=== PATIENT | male | born 1970 | race Caucasian/White ===

== ENCOUNTER 2019-07-22 12:01 | Emergency (ER) | payer OTHER ==
--- NOTE | 2019-07-22 12:25 | PDOC ---
History of Present Illness - General Chief Complaint: Injury Stated Complaint: LEFT SHOULDER PAIN Time Seen by Provider: 07/22/19 12:06 - History of Present Illness Initial Comments: Mr. Dalton is a 49 y/o male with PMH significant for HTN and HLD, presenting s/p mechanical fall yesterday. Reports that he slipped on the stairs and fell down four steps. Reports left shoulder pain. Denies head trauma, LOC. Denies nausea/vomiting after the fall. Denies dizziness /palpitations prior to the fall. Denies neck pain. Past History - Past Medical History Allergies/Adverse Reactions: Allergies Allergy/AdvReac Type Severity Reaction Status Date / Time No Known Allergies Allergy Verified 07/22/19 12:14 Home Medications: Ambulatory Orders NK [No Known Home Medication] 07/22/19 Kidney Stones: Yes - Psycho Social/Smoking Cessation Hx Smoking History: Former smoker Have you smoked in the past 12 months: No Review of Systems - Review of Systems Comments:: GENERAL/CONSTITUTIONAL: No fever or chills. No weakness._ HEAD, EYES, EARS, NOSE AND THROAT: No change in vision. No change in hearing. No sore throat._ CARDIOVASCULAR: No chest pain or shortness of breath_ RESPIRATORY: Denies cough, hemoptysis_ GASTROINTESTINAL: No nausea, vomiting, diarrhea or constipation._ GENITOURINARY: No dysuria, frequency, or change in urination._ MUSCULOSKELETAL: Reports left shoulder pain. SKIN: No rash_ NEUROLOGIC: No headache, vertigo, loss of consciousness, or change in strength/ sensation._ *Physical Exam - Physical Exam Comments: GENERAL: Awake, alert, and oriented to person/place/time, in no acute distress_ HEAD: No signs of trauma, normocephalic, atraumatic _ EYES: PERRLA, EOMI, sclera anicteric, conjunctiva clear_ ENT: Hearing grossly normal, nares patent, oropharynx clear without exudates. No uvular deviation. Moist mucosa_ NECK: Normal ROM, supple, no lymphadenopathy, JVD, or masses_ LUNGS: No distress, speaks in full sentences, clear to auscultation bilaterally _ HEART: Regular rate and rhythm, normal S1 and S2, no murmurs appreciated, peripheral pulses normal and equal bilaterally._ ABDOMEN: Soft, nontender, normoactive bowel sounds. No guarding, no rebound. No masses_ EXTREMITIES RUE/LLE/RLE: Normal inspection, Normal range of motion, no edema. No clubbing or cyanosis_ LUE: Inspection: No erythema or ecchymosis. TTP over left acromion. No obvious abnormalities, no open wounds. Compartments soft and compressible, pain within proportion, no pain to passive stretch Sensation: sensation present to light touch Motor: intact AIN/PIN/Ulnar in hand; 5/5 Wrist flex/ext; 5/5 Elbow flex/ext; 5/ 5 Shoulder ABd,Flex Vascular: 2+ radial pulse palpated, BCR all fingers <2 sec. NEUROLOGICAL: Cranial nerves II through XII grossly intact. Normal speech, normal gait, no focal sensorimotor deficits _ SKIN: Warm, Dry, normal turgor, no rashes or lesions noted_ Medical Decision Making - Medical Decision Making 49M hx of HTN HLD, here after mechanical fall yesterday afternoon. Fell on left shoulder. Neurovascularly intact. -XR left shoulder 07/22/19 13:07 XR left shoulder does not show fracture or subluxation. Plan to d/c home, Motrin for pain control, f/u PCP and ortho as needed. Discharge - Discharge Information Problems reviewed: Yes Clinical Impression/Diagnosis: Shoulder pain, left Qualifiers: Chronicity: acute Qualified Code(s): M25.512 - Pain in left shoulder Condition: Stable Disposition: HOME - Follow up/Referral Referrals: Joaquin Hernandez MD [Staff Physician] - Jf Gore MD [Staff Physician] - - Patient Discharge Instructions Patient Printed Discharge Instructions: DI for Shoulder Pain Additional Instructions: Please rest and ice your left shoulder as needed. Please take Motrin as needed for your pain (follow instructions on the package). Please make a follow up appointment with your primary care physician and an orthopedist if the pain does not improve (referrals included here). - Post Discharge Activity
[2019-07-22] MEDS ORDERED: IBUPROFEN 600 MG TABLET (FP) PO ONE ×2 (12:30→12:34)
[2019-07-22 12:32] VITALS: BP 164/104; PULSE 95; TEMP 98.1; BMI 35.2
--- NOTE | 2019-07-22 12:45 | PDOC ---
Attending Attestation - Resident Resident Name: Jerald Kraus - ED Attending Attestation I have performed the following: I have examined & evaluated the patient, The case was reviewed & discussed with the resident, I agree w/resident's findings & plan, Exceptions are as noted - HPI HPI: 07/22/19 12:43 49-year-old male here today status post fall yesterday. Patient states he fell on some steps landing on his left side complaining of left shoulder pain. States he did not hit his head no LOC no neck or back pain did not take anything for his pain prior to arrival pain in the left shoulder is worse with abduction at 90 degrees denies any elbow or wrist pain no other injury sustained during his fall has been ambulating since the injury pain is moderate no associated ecchymosis swelling or deformity - Physicial Exam PE: 07/22/19 12:43 Awake alert no acute distress head is atraumatic there is no palpable cervical spine tenderness. Lungs are clear bilaterally heart is regular without murmurs rubs or gallops no palpable chest wall tenderness crepitus step-offs. No collarbone tenderness. The extremity exam reveals tenderness palpation laterally of the left shoulder there is pain at abduction to 90degrees no deformity patient is able to touch the opposite shoulder without difficulty elbow and wrist are nontender with full range of motion abdomen is soft nontender extremities otherwise atraumatic bilateral pelvis and hips are stable - Medical Decision Making 07/22/19 12:44 49-year-old male status post trip and fall 24 hours ago complaining of left shoulder pain. Plan x-ray to rule out underlying fracture likely rotator cuff injury or contusion plan Motrin for pain ice follow-up with orthopedics effect x -rays are negative DC home 07/22/19 12:45 07/22/19 14:33 xray negative dc home.
== END 2019-07-22 13:10 | disposition home or self-care (01) ==
LOC: FER 12:01
DX: M25.512 Pain in left shoulder (principal); I10 Essential (primary) hypertension; E78.5 Hyperlipidemia, unspecified; Z87.891 Personal history of nicotine dependence; W10.9XXA Fall (on) (from) unspecified stairs and steps, initial encounter; Y93.9 Activity, unspecified; Y92.9 Unspecified place or not applicable
CPT/HCPCS: 73030-TC-LT-FY; 99282-25

== ENCOUNTER 2021-10-09 04:33 | Day surgery (SDC) | payer OTHER ==
[2021-10-08 14:00] VITALS: BMI 35.2
[2021-10-09 10:49] VITALS: TEMP 97.5
[2021-10-09 11:39] VITALS: BP 129/74; PULSE 64
== END 2021-10-09 11:58 | disposition home or self-care (01) ==
LOC: JASU-ENDO 04:33
PROVIDERS: ATTEND Internal Medicine Gastroenterology
PROC: 0DBL8ZX Excision of Transverse Colon, Via Natural or Artificial Opening Endoscopic, Diagnostic (ICD-10-PCS; 2021-10-09)
PROC: 0DB98ZX Excision of Duodenum, Via Natural or Artificial Opening Endoscopic, Diagnostic (ICD-10-PCS; 2021-10-09)
PROC: 0DB68ZX Excision of Stomach, Via Natural or Artificial Opening Endoscopic, Diagnostic (ICD-10-PCS; 2021-10-09)
PROC: 0DBK8ZX Excision of Ascending Colon, Via Natural or Artificial Opening Endoscopic, Diagnostic (ICD-10-PCS; principal; 2021-10-09 09:30)
DX: Z12.11 Encounter for screening for malignant neoplasm of colon (principal); D12.2 Benign neoplasm of ascending colon; D12.3 Benign neoplasm of transverse colon; K64.8 Other hemorrhoids; K29.00 Acute gastritis without bleeding; K29.80 Duodenitis without bleeding
CPT/HCPCS: 88305-TC; 88342-TC

== ENCOUNTER 2023-03-01 17:23 | Emergency (ER) | payer OTHER ==
[2023-03-01 17:51] VITALS: BP 127/87; PULSE 100; RESP 20; TEMP 99.1; BMI 34.8
[2023-03-01] MEDS ORDERED: ACETAMINOPHEN 1000 MG/100 ML BAG IVPB ONE (17:51)
[2023-03-01] MEDS ORDERED: ONDANSETRON 4 MG/2 ML VIAL IVPUSH ONE (17:51)
[2023-03-01] MEDS ORDERED: SODIUM CHLORIDE 0.9% 1000 ML INFUS.BAG IV ONE (17:51)
[2023-03-01] MEDS ORDERED: ACETAMINOPHEN INJECTION 100 ML IVPB ONE (17:54)
[2023-03-01] MEDS ORDERED: ONDANSETRON 4 MG/2 ML VIAL ONE (17:54)
[2023-03-01 18:20] LABS: HEMATOCRIT 45.9 % (35.4-49); HEMOGLOBIN 15.9 G/dL (11.7-16.9); MCH 29.9 pg (25.7-33.7); MCHC 34.6 g/dl (32.0-35.9); MEAN CELL VOLUME 86.6 fl (80-96); MEAN PLT VOLUME 8.4 fl (7.5-11.1); PLATELET COUNT 238.8 10^3/uL (134-434); RDW 13.8 % (11.9-15.9); WHITE BLOOD COUNT 10.8 10^3/uL (4.0-10.8)
[2023-03-01 18:51] LABS: ALBUMIN 4.3 g/dl (3.4-5.0); BILIRUBIN,TOTAL 0.8 mg/dl (0.2-1); CALCIUM 9.3 mg/dl (8.5-10); CREATININE 1.2 mg/dl (0.55-1.3); POTASSIUM 3.9 mmol/L (3.5-5.1); TOT PROT 7.4 g/dl (6.4-8.2)
[2023-03-01] MEDS ORDERED: FAMOTIDINE 20 MG/50 ML IVPB 20 MG/50 ML MG IVPB ONE ×2 (19:25→19:42)
== END 2023-03-02 00:42 | disposition home or self-care (01) ==
LOC: FER 17:23
PROC: 3E033GC Introduction of Other Therapeutic Substance into Peripheral Vein, Percutaneous Approach (ICD-10-PCS; principal; 2023-03-01)
PROC: 3E033GC Introduction of Other Therapeutic Substance into Peripheral Vein, Percutaneous Approach (ICD-10-PCS; 2023-03-01)
PROC: 3E033GC Introduction of Other Therapeutic Substance into Peripheral Vein, Percutaneous Approach (ICD-10-PCS; 2023-03-01)
DX: R10.13 Epigastric pain (principal); R11.0 Nausea
CPT/HCPCS: 36415; 71045-TC-FY; 74177-TC; 76705-TC; 80053; 81003; 83690; 84484; 85027; 93005; 99285-25; Q9967